=== PATIENT | female | born 2000 | race African-American/Black ===

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

== ENCOUNTER 2021-05-02 08:51 | Emergency (ER) | payer OTHER ==
[~2021-05-02] VITALS: Ht 170.2 cm; Wt 70.3 kg
[~2021-05-02 08:51] MED LIST: ADVAIR INH; ALBUTEROL2.5 MG/31 INH; PREDNISONE 10 M10 MG PO; PREDNISONE50 MG PO; VENTOLIN HFA 1818 GM INH
[2021-05-02 09:00] VITALS: BP 119/84
[2021-05-02] MEDS ORDERED: PREDNISONE50 MG PO (09:09)
== END 2021-05-02 09:20 | disposition home or self-care (01) ==
LOC: ER 08:51
DX: T78.1XXA Other adverse food reactions, not elsewhere classified, initial encounter (principal); J45.909 Unspecified asthma, uncomplicated; Z90.13 Acquired absence of bilateral breasts and nipples; Z91.09 Other allergy status, other than to drugs and biological substances; X58.XXXA Exposure to other specified factors, initial encounter